=== PATIENT | male | born 1995 | race Asian ===

== ENCOUNTER 2023-05-28 08:08 | Emergency (ER) | payer OTHER ==
[~2023-05-28] VITALS: Ht 172.7 cm; Wt 102.1 kg
[2023-05-28 08:27] VITALS: TEMP 98.2
[2023-05-28] MEDS ORDERED: ACETAMINOPHEN ES 500 MG TABLET PO ONE (09:00)
[2023-05-28] MEDS ORDERED: ACETAMINOPHEN ES 500 MG TABLET ONE (09:36)
[2023-05-28 11:08] VITALS: BP 116/52; O2SAT 97
== END 2023-05-28 11:08 | disposition home or self-care (01) ==
LOC: ER 08:10
DX: M25.562 Pain in left knee (principal); M25.561 Pain in right knee; E11.9 Type 2 diabetes mellitus without complications
CPT/HCPCS: 36415; 70450-TC; 72125-TC; 73564-TC; G0480